=== PATIENT | male | born 1970 | race Caucasian/White ===

== ENCOUNTER 2019-06-19 10:15 | Day surgery (SDC) | payer OTHER ==
[2019-06-18 09:09] LABS: Absolute Lymphocytes (CBC) 1.8 K/uL (0.7-4.9); Basophils % 0.4 % (0-1.3); Hematocrit 48.6 % (39.6-49.0); Lymphocytes % 23.1 % (15.3-44.8); MPV 8.5 fL (7.6-11.3); RBC Red Blood Cell Count 5.52 M/uL (4.33-5.43)
--- NOTE | 2019-06-18 10:33 | RAD REPORT ---
EXAM DESCRIPTION: RAD - Chest Pa And Lat (2 Views) - 06/18/2019 9:04 am CLINICAL HISTORY: preop, patient pending hernia repair periumbilical region COMPARISON: CHEST PA AND LAT 2 VIEW dated 04/30/2014 TECHNIQUE: Frontal and lateral views of the chest were obtained. FINDINGS: The lungs are clear. Interstitial pattern matches comparison. Heart size is normal and ce ntral vasculature is within normal limits. No pleural effusion or pneumothorax seen. No acute bony finding noted. No aortic abnormality. IMPRESSION: No acute cardiopulmonary process. No significant change from comparison.
--- NOTE | 2019-06-19 08:26 | EKG ---
Test Date: 2019-06-18 Test Time: 08:38:25 Practical Nursing Faculty: KELECHI MEASUREMENT RESULTS: Intervals: Rate: 48 NE: 168 QRSD: 88 QT: 426 QTc: 380 [place]: P: 61 NE: 168 QRS: -2 T: 27 INTERPRETIVE STATEMENTS: Marked sinus bradycardia Abnormal ECG Compared to ECG 07/18/2003 07:57:00 No significant changes Electronically Signed On 06-19-19 08:25:19 [employer]CH[employer] by Dav Senior
[2019-06-19] MEDS ORDERED: NA CHLORIDE 0.9% 1,000 ML ONE (10:47)
[2019-06-19] MEDS ORDERED: CEFAZOLIN/SWI 1gm 1 GM/10 ML SYR ONE (11:48)
[2019-06-19] MEDS ORDERED: propofoL 200 MG/20 ML VIAL IV ONE (12:37)
[2019-06-19] MEDS ORDERED: MIDAZOLAM HCL 2 MG/2 ML INJ ONE (12:38)
[2019-06-19] MEDS ORDERED: GLYCOPYRROLATE 0.2 MG/ML SYR ONE (12:38)
[2019-06-19] MEDS ORDERED: LIDOCAINE 2% MPF 5 ML VIAL ONE (12:39)
[2019-06-19] MEDS ORDERED: FENTANYL CITR 250 MCG/5 ML ONE (12:39)
[2019-06-19] MEDS ORDERED: ONDANSETRON 4 MG/2 ML VIAL ONE ×2 (12:40→14:32)
[2019-06-19] MEDS ORDERED: ROCURONIUM 50 MG/5 ML VIAL IV ONE (12:40)
--- NOTE | 2019-06-19 13:42 | P.BOP ---
Preoperative diagnosis: recurrent periumbilical ventral hernia, epigastric subQ tender mass Postoperative diagnosis: same Primary procedure: 1. Open repair of recurrent ventral hernia laparoscopic assisted Secondary procedure: 2. Laparoscopic lysis of adhesions Other procedure(s): 3. Excisional biopsy of tender epigastric subQ mass 3x3cm Production Line Welder: AMBER ANDINO (ENTERTAINMENT DANCER) Estimated blood loss: <10cc Specimen: hernia sac, mass Findings: see dictation Anesthesia: General Complications: None Transferred to: Recovery Room Condition: Good
[2019-06-19] MEDS ORDERED: KETOROLAC 30 MG/ML INJ ONE (14:02)
[2019-06-19] MEDS ORDERED: MEPERIDINE HCL 25 MG/0.5 ML ONE (14:02)
[2019-06-19] MEDS: HYDROMORPHONE HCL 1 MG/ML INJ ONE ×6 (14:04→14:30)
[2019-06-19] MEDS ORDERED: HYDROCODONE/APAP 7.5/325 MG TAB ONE (15:02)
[2019-06-19 15:08] VITALS: TEMP 96.8; O2SAT 95
[2019-06-19 16:00] VITALS: BP 134/76
--- NOTE | 2019-06-19 23:52 | OP ---
Date of Procedure: 06/19/2019 Surgeon: Nolan Davenport MD Preoperative Diagnoses: 1.Recurrent periumbilical ventral hernia. 2.Tender epigastric subcutaneous mass. Procedures: 1.Open repair of recurrent ventral hernia, laparoscopic assisted. 2.Laparoscopic lysis of adhesions. 3.Excisional biopsy of tender epigastric subcutaneous mass 3 x 3 cm. Estimated Blood Loss: Less than 10 mL. Specimen: Hernia sac and mass. Findings: Patient has a ventral hernia just above the umbilical region. Patient also had an epigast charley mass present. Indications: This is the case of a 49-year-old patient, comes to us with a hernia in the ventral reg ion. He had pain and discomfort and getting bigger. He wants it repaired. He had a previous hernia repair several years ago, and he claimed they used mesh on him. So, we discussed with him the pros and cons of mesh and also the challenges that present at this moment, but he understands the benefits , alternatives, and risks of repair of a recurrent ventral hernia, possible mesh removal, possible me sh placement with benefits, alternatives, and risks including but not limited to, infection, bleeding , damage to adjacent structures, anesthesia complication, recurrence, HI, even . He also unders tands this may not relieve any symptoms. He might need more than one surgical intervention. He unde rstands the pros and cons of mesh placement. He understands also we may encounter a lot of adhesions inside from previous surgeries. He signed the consent. He also asked me to remove a subcutaneous m ass that he has in the epigastric area, away from the area of the hernia, but is increasing in size g iving pain and discomfort. He wants it excised. He wants to take this opportunity since the mass is deep and he preferred to do it under anesthesia. So, we did agree with him. The risks and benefits applied once again. He signed the consent. Description Of Procedure: Patient was brought to the operating room, placed in supine position. Ane sthesia was done without complication. Abdominal area was prepped and draped in a sterile fashion. First, incision was done in the epigastric area that will serve to remove his mass eventually but als o will serve to put a Jacque trocar to understand the area of the previous surgery. We opened the sk in on the fascia under direct visualization, opened the peritoneum under direct visualization. Vicry l #1 placed inside the fascia. Jacque trocar was carefully introduced. Pneumoperitoneum was obtaine d. We noticed extensive intraabdominal adhesions, especially in the area where the previous repair w as. So, I placed a 5 mm in the left lower quadrant and this allowed me to put a LigaSure laparoscopi c and take care of all these adhesions down bringing down intestines and omentum down. This helped m e see better the area. Patient has a mesh placed in that area. It is fully incorporated, cannot be removed without creating big defects. But we noticed also the new hernia he has is basically a ruptu re of the ventral region, but still cover with mesh. It is still progressing, so we believe that we do not repair this hernia and will just past the area of the mesh, but apparently, I may not have to do another mesh. So, we proceeded to make an incision on the ventral region to find the hernia and i ndeed we found a defect in the fascia with a fatty tissue coming through it. We removed the fascial edges, it looks clean and looks strong enough to hold stitches. So, we closed that area with a figur e-of-eight multiple times #1 Prolene. Once we put the camera once again from inside, we noted there was no other defect present. We did not have to remove the mesh and we did not have to put extra mes h. The area was irrigated. We looked at the area of the lysis of adhesions. It looks intact with n o bleeding. At that moment, I proceeded to remove the trocars under direct vision, deflated the pneu moperitoneum, closed the fascia with #1 Vicryl. After that, to minimize scar tissue in him since the lump in the epigastric area is near the area of my incision where I put the trocar, we just went thr ough the subcutaneous tissue and we were able to localize this mass well delineated to the left of th e epigastric area just behind the subcostal margin. The mass was identified. I removed some of the fascia involved with this mass. The mass was excised and sent to the pathologist. No other masses p alpated. At that moment, I proceeded to close the subcutaneous tissue with 3-0 chromic and then the incisions were closed with 3-0 chromic and then eveline on top. Sponge count and instrument counts were correct. Patient tolerated the procedure well. Patient was sent to the recovery room in stable condition. BEE/JEAN Voice ID: [id number] Report ID: [id number]
--- NOTE | 2019-06-19 23:52 | OP ---
Surgeon: Nolan Davenport MD Diagnosis: Recurrent periumbilical ventral hernia with epigastric subcutaneous tender mass. Procedures: 1.Open repair of recurrent ventral hernia, laparoscopic assisted. 2.Laparoscopic lysis of adhesions, extensive. 3.Excisional biopsy of tender epigastric subcutaneous mass 3 x 3 cm. Disposition: Home. Activity: As tolerated. No heavy lifting. Followup: In my office in 1 week. Call for appointment at [phone]. Discharge Instructions: Keep the area dry for 48 hours, then may shower. Keep eveline intact. Medications: Hydrocodone q.4 hours p.r.n. pain, Bactrim DS p.o. b.i.d. BEE/JEAN Voice ID: [id number] Report ID: [id number]
== END 2019-06-19 16:15 | disposition home or self-care (01) ==
LOC: OR 10:15
PROVIDERS: ATTEND Surgery
PROC: 0JB80ZZ Excision of Abdomen Subcutaneous Tissue and Fascia, Open Approach (ICD-10-PCS; 2019-06-19)
PROC: 0WQF0ZZ Repair Abdominal Wall, Open Approach (ICD-10-PCS; 2019-06-19)
PROC: 0DNW4ZZ Release Peritoneum, Percutaneous Endoscopic Approach (ICD-10-PCS; principal; 2019-06-19 13:30)
DX: K43.2 Incisional hernia without obstruction or gangrene (principal); R22.2 Localized swelling, mass and lump, trunk; K66.0 Peritoneal adhesions (postprocedural) (postinfection); I10 Essential (primary) hypertension; Z82.49 Family history of ischemic heart disease and other diseases of the circulatory system; Z80.0 Family history of malignant neoplasm of digestive organs
CPT/HCPCS: 93005; 85025; 80048; 36415; 88302; 88304; 71046; 49329; 11403; 49565; J2704; J2250; J3010; J2175; J1170 ×3; J0690; J7030; J2405 ×2; 88305